=== PATIENT | female | born 1980 | race Caucasian/White ===

== ENCOUNTER 2016-06-09 19:43 | Emergency (ER) | payer SELFPAY ==
[~2016-06-09 19:43] MED LIST: CYCL1TAB29 PO; NAPR500 PO
== END 2016-06-09 20:21 | disposition left against medical advice (07) ==
LOC: PHED 19:43
DX: R21 Rash and other nonspecific skin eruption (principal)
CPT/HCPCS: 99281

== ENCOUNTER 2016-08-16 17:44 | Emergency (ER) | payer SELFPAY ==
[~2016-08-16] VITALS: Ht 160 cm; Wt 70.0 kg
[2016-08-16 17:46] VITALS: BP 117/84; PULSE 75; RESP 14; TEMP 99.1; O2SAT 98
--- NOTE | 2016-08-16 17:57 | PD ---
HPI Chief Complaint: Oral / Dental Pain or Problem Time Seen by Provider: 17:57 Travel History International Travel<30 days: No Contact w/Intl Traveler<30days: No Traveled to known affect area: No History of Present Illness HPI 36-year-old female presents to the emergency department complaint of left upper tooth pain 3 days with onset of facial swelling today. Denies fever, chills, nausea, vomiting. She says her tooth pain has pretty much subsided but is cigar wrapper tender automatic. Her face is tender to touch. Denies difficulty swallowing or throat pain. Says her tooth has a large hole in it. She has tried taking ibuprofen and Tylenol for the pain. No known aggravating factors. Allergies to Depakote, latex, Reglan. History of asthma. No other modifying factors or associated signs and symptoms. PFSH Past Medical History Asthma: Yes (SEASONAL, ALLERGY INDUCED) Bipolar Disorder: Yes Cancer: No Cardiovascular Problems: No Diminished Hearing: No Endocrine: No Gastrointestinal Disorders: Yes (frequent nausea) Genitourinary: No Immune Disorder: No Implanted Vascular Access Dvce: No Musculoskeletal: Yes Neurologic: No Psychiatric: No Reproductive: Yes (ENDOMETRIOSIS) Respiratory: Yes PNEUMOCCOCAL Vaccine (Year): 2010 ?: Not LMP: 08/06/16 : 2 Para: 0 Miscarriage: 2 : 0 Dilation and Curettage (D&C): Yes Past Surgical History Gynecologic Surgery: Yes (LAPOROSCOPY FOR ENDOMETRIOSIS, D&C) Oral Surgery: Yes (TONSILLECTOMY ) Tonsillectomy: Yes Other Surgery: Yes (HAND) Social History Alcohol Use: No Tobacco Use: Yes (1.5 PPD) Substance Use: No Allergies-Medications (Allergen,Severity, Reaction): Coded Allergies: Latex (Verified Allergy, Severe, SOB, Swelling, Rash , 08/16/16) Depakote (Verified Allergy, Intermediate, RASH, 08/16/16) Ritalin (Verified Allergy, Intermediate, RASH, 08/16/16) Reported Meds & Prescriptions Reported Meds & Active Scripts Active Deltasone (Prednisone) 20 Mg Tab 40 Mg PO DAILY 4 Days start 08/17/2016 Peridex Liq (Chlorhexidine Gluconate (Mouth) Liq) 0.12% Soln 15 Ml SWISH-SPIT BID 10 Days Ibuprofen 800 Mg Tab 800 Mg PO Q6HR PRN Clindamycin (Clindamycin HCl) 150 Mg Cap 450 Mg PO Q6H 10 Days Flexeril (Cyclobenzaprine HCl) 10 Mg Tab 10 Mg PO TID PRN Naprosyn (Naproxen) 500 Mg Tab 500 Mg PO BID PRN Review of Systems Except as stated in HPI: all other systems reviewed are Neg Physical Exam Narrative GENERAL: Well-nourished, well-developed female patient, in no acute distress; afebrile, nontoxic-appearing SKIN: Warm and dry. HEAD: Atraumatic. Normocephalic. Left cheek with facial edema; without erythema ; with tenderness on palpation. No lymphadenopathy. EYES: Pupils equal and round. No scleral icterus. No injection or drainage. ENT: Mucosa pink and moist. Airway patent. MOUTH: Mucous membranes moist, no lesions, tongue and gums appear normal. Left upper tooth #14 with large dental cavity and decay; with tenderness on palpation ; surrounding gingiva is without erythema, edema, drainage; no obvious abscess noted. NECK: Trachea midline. No lymphadenopathy. CARDIOVASCULAR: Regular rate. RESPIRATORY: No accessory muscle use. GASTROINTESTINAL: Flat. MUSCULOSKELETAL: No obvious deformities. No clubbing. No cyanosis. No edema. NEUROLOGICAL: Awake and alert. Oriented 3. No obvious cranial nerve deficits. Motor grossly within normal limits. Normal speech. PSYCHIATRIC: Appropriate mood and affect; insight and judgment normal. Data Data Last Documented VS Vital Signs Date Time Temp Pulse Resp B/P Pulse Ox O2 Delivery O2 Flow Rate FiO2 08/16/16 17:46 99.1 75 14 117/84 98 Orders Clindamycin (Cleocin) (08/16/16 18:00) Prednisone (Deltasone) (08/16/16 18:00) Ibuprofen (Motrin) (08/16/16 18:00) [facility] Medical Decision Making Medical Screen Exam Complete: Yes Emergency Medical Condition: Yes Medical Record Reviewed: Yes Differential Diagnosis Dentalgia, infected dental carry, dental abscess Narrative Course 36-year-old female with left upper tooth #14 dentalgia. Patient has left cheek facial edema without erythema. Patient is afebrile and nontoxic-appearing. No obvious abscess noted. Clindamycin, Deltasone, ibuprofen administered in the ER. Emergency dental information sheet provided. Clindamycin, Deltasone, ibuprofen, Peridex mouth rinse prescribed for home. Instructed patient to follow up with dentist. Patient verbalizes understanding and agreement with treatment plan. Patient is medically cleared and stable for discharge. Discussed reasons to return to the emergency department. Instructed patient to follow up with primary care provider. Patient agrees with treatment plan. The patients vital signs are stable and the patient is stable for outpatient follow- up and treatment. Patient discharged home, stable and in no acute distress. Diagnosis Primary Impression: Dentalgia Additional Impression: Facial edema Referrals: Dentist Primary Care Physician Patient Instructions: Dental Abscess (ED), Dental Caries (ED), General Instructions, Toothache (ED) Departure Forms: Tests/Procedures, Work Release Enter return to work date: Aug 17, 2016 Additional Instructions: Complete full course of antibiotics; clindamycin is on the $4 list at [facility] , otherwise try [facility] Ibuprofen or Tylenol as directed and as needed to reduce pain and inflammation Use Peridex as directed for oral hygiene Warm compresses to the affected area Follow-up with dentist Follow-up with primary care provider Return to emergency department immediately with worsening of symptoms Med/Other Pt SpecificInfo: Prescription(s) given Scripts Prednisone (Deltasone)20 Mg Tab40 Mg PO DAILY 4 Days Ref 0 start 08/17/2016 Prov:Annelise Garcia 08/16/16 Chlorhexidine Gluconate (Mouth) Liq (Peridex Liq)0.12% Soln15 Ml SWISH-SPIT BID 10 Days Ref 0 Prov:Annelise Garcia 08/16/16 Ibuprofen 800 Mg [id number] Mg PO Q6HR PRN (PAIN) #30 TAB Ref 0 Prov:Annelise Garcia 08/16/16 Clindamycin 150 Mg [id number] Mg PO Q6H 10 Days Ref 0 Prov:Annelise Garcia 08/16/16 Disposition: 01 DISCHARGE HOME Condition: Stable Annelise Garcia Aug 16, 2016 17:57
[2016-08-16] MEDS ORDERED: IBUPROFEN 800 MG TAB PO ONE (18:00)
[2016-08-16] MEDS ORDERED: PRED-503 PO (18:00)
[2016-08-16] MEDS ORDERED: CLIN1CAP5 PO (18:00)
[2016-08-16] MEDS ORDERED: CLINDAMYCIN 150 MG CAP PO SCH (18:00)
[2016-08-16] MEDS ORDERED: IBUP800T23 PO (18:00)
[2016-08-16] MEDS ORDERED: predniSONE 20 MG TAB PO ONE (18:00)
[2016-08-16] MEDS ORDERED: PERI0.126 SWISH-SPIT (18:00)
== END 2016-08-16 18:10 | disposition home or self-care (01) ==
LOC: NETRI 17:44
DX: K08.89 Other specified disorders of teeth and supporting structures (principal); R22.0 Localized swelling, mass and lump, head; F17.200 Nicotine dependence, unspecified, uncomplicated
CPT/HCPCS: 99283; J7512

== ENCOUNTER 2016-09-18 09:24 | Emergency (ER) | payer SELFPAY ==
[~2016-09-18] VITALS: Ht 160 cm; Wt 68.0 kg
[~2016-09-18 09:24] MED LIST changes: +CLIN1CAP5 PO; +IBUP800T23 PO; +PERI0.126 SWISH-SPIT; +PRED-503 PO
[2016-09-18 09:26] VITALS: BP 127/75; PULSE 88; RESP 20; TEMP 98.5; O2SAT 98
[2016-09-18] MEDS ORDERED: IBUP800T23 PO (09:51)
[2016-09-18] MEDS ORDERED: CLIN1CAP5 PO (09:51)
[2016-09-18] MEDS ORDERED: PERI0.126 SWISH-SPIT (09:51)
--- NOTE | 2016-09-18 09:52 | PD ---
HPI Chief Complaint: Facial Pain or Swelling Time Seen by Provider: 09:51 Travel History International Travel<30 days: No Contact w/Intl Traveler<30days: No Traveled to known affect area: No History of Present Illness HPI 36-year-old female presents to the emergency Department with complaint of left facial swelling that she woke up this morning. Seen her about a month ago with facial swelling to the same side and left upper tooth pain. She denies tooth pain or any other pain at this time. Denies fever, vomiting. She has not followed up with a dentist since her last visit here. She reports her facial swelling and tooth pain went away after taking the antibiotics that she was last prescribed. She didn't finish the steroids that were last prescribed because of change in behavior and feeling "psychotic." She has not taken any medications or tried any treatments to her symptoms. No known relieving or aggravating factors. No other medical complaints. Allergies to Depakote, latex , Ritalin. No other modifying factors or associated signs and symptoms. PFSH Past Medical History Asthma: Yes (SEASONAL, ALLERGY INDUCED) Bipolar Disorder: Yes Cancer: No Cardiovascular Problems: No Diminished Hearing: No Endocrine: No Gastrointestinal Disorders: Yes (frequent nausea) Genitourinary: No Immune Disorder: No Implanted Vascular Access Dvce: No Musculoskeletal: Yes Neurologic: No Psychiatric: No Reproductive: Yes (ENDOMETRIOSIS) Respiratory: Yes Tetanus Vaccination: < 5 Years Influenza Vaccination: No PNEUMOCCOCAL Vaccine (Year): 2010 ?: Not LMP: 08/20/16 : 2 Para: 0 Miscarriage: 2 : 0 Dilation and Curettage (D&C): Yes Past Surgical History Gynecologic Surgery: Yes (LAPOROSCOPY FOR ENDOMETRIOSIS, D&C) Oral Surgery: Yes (TONSILLECTOMY ) Tonsillectomy: Yes Other Surgery: Yes (HAND) Social History Alcohol Use: No Tobacco Use: Yes (1.5 PPD) Substance Use: No Allergies-Medications (Allergen,Severity, Reaction): Coded Allergies: Latex (Verified Allergy, Severe, SOB, Swelling, Rash , 09/18/16) Depakote (Verified Allergy, Intermediate, RASH, 09/18/16) Ritalin (Verified Allergy, Intermediate, RASH, 09/18/16) Reported Meds & Prescriptions Reported Meds & Active Scripts Active Zofran Odt (Ondansetron Odt) 4 Mg Tab 4 Mg SL Q8HR PRN Clindamycin (Clindamycin HCl) 150 Mg Cap 450 Mg PO Q6H 10 Days Ibuprofen 800 Mg Tab 800 Mg PO Q6HR PRN Peridex Liq (Chlorhexidine Gluconate (Mouth) Liq) 0.12% Soln 15 Ml SWISH-SPIT BID 10 Days Review of Systems Except as stated in HPI: all other systems reviewed are Neg Physical Exam Narrative GENERAL: Well-nourished, well-developed female patient, in no acute distress; afebrile, nontoxic-appearing SKIN: Warm and dry. HEAD: Atraumatic. Normocephalic. Left cheek with facial edema; without erythema ; without tenderness on palpation. No lymphadenopathy. EYES: Pupils equal and round. No scleral icterus. No injection or drainage. ENT: Mucosa pink and moist. Airway patent. MOUTH: Mucous membranes moist, no lesions, tongue and gums appear normal. Left upper tooth #14 with large dental cavity and decay; without tenderness on palpation; surrounding gingiva is without erythema, edema, drainage; no obvious abscess noted. NECK: Trachea midline. No lymphadenopathy. CARDIOVASCULAR: Regular rate. RESPIRATORY: No accessory muscle use. GASTROINTESTINAL: Flat. MUSCULOSKELETAL: No obvious deformities. No clubbing. No cyanosis. No edema. NEUROLOGICAL: Awake and alert. Oriented 3. No obvious cranial nerve deficits. Motor grossly within normal limits. Normal speech. PSYCHIATRIC: Appropriate mood and affect; insight and judgment normal. Data Data Last Documented VS Vital Signs Date Time Temp Pulse Resp B/P Pulse Ox O2 Delivery O2 Flow Rate FiO2 09/18/16 09:26 98.5 88 20 127/75 98 Room Air Orders Clindamycin (Cleocin) (09/18/16 10:00) Ibuprofen (Motrin) (09/18/16 10:00) Ondansetron Odt (Zofran Odt) (09/18/16 10:15) [facility] Medical Decision Making Medical Screen Exam Complete: Yes Emergency Medical Condition: Yes Medical Record Reviewed: Yes Differential Diagnosis Dentalgia, dental abscess, facial edema Narrative Course 36-year-old female with left-sided facial edema. I saw this patient on August 16 with similar symptoms at that time she had tooth pain. She denies tooth pain at this time. She has not followed up with a dentist since her last visit. Facial edema is without erythema or tenderness on palpation. I will treat the patient for suspected dental abscess. Patient reports feeling nauseated while taking clindamycin last month. I will prescribe Zofran as needed for nausea. Clindamycin, Zofran, and ibuprofen administered in the ER. Clindamycin, Zofran , Peridex mouth rinse, ibuprofen prescribed for home. Provided patient with emergency dental gemmation sheet. Instructed to follow-up with dentist. Patient verbalizes understanding and agreement with treatment plan. Patient is medically cleared and stable for discharge. Discussed reasons to return to the emergency department. Instructed patient to follow up with primary care provider. Patient agrees with treatment plan. The patients vital signs are stable and the patient is stable for outpatient follow-up and treatment. Patient discharged home, stable and in no acute distress. Diagnosis Primary Impression: Facial edema Referrals: Dentist Primary Care Physician Patient Instructions: Dental Abscess (ED), Dental Caries (ED), General Instructions, Toothache (ED) Departure Forms: Tests/Procedures, Work Release Enter return to work date: September 19, 2016 Additional Instructions: Complete full course of antibiotics Ibuprofen as directed and as needed to reduce pain and inflammation Use Peridex as directed for oral hygiene Warm compresses to the affected area Follow-up with dentist Follow-up with primary care provider Return to emergency department immediately with worsening of symptoms Med/Other Pt SpecificInfo: Prescription(s) given Scripts Ondansetron Odt (Zofran Odt)4 Mg Tab4 Mg SL Q8HR PRN (Nausea/Vomiting) #20 TAB Ref 0 Prov:Annelise Garcia 09/18/16 Clindamycin 150 Mg [id number] Mg PO Q6H 10 Days Ref 0 Prov:Annelise Garcia 09/18/16 Ibuprofen 800 Mg [id number] Mg PO Q6HR PRN (PAIN) #30 TAB Ref 0 Prov:Annelise Garcia 09/18/16 Chlorhexidine Gluconate (Mouth) Liq (Peridex Liq)0.12% Soln15 Ml SWISH-SPIT BID 10 Days Ref 0 Prov:Annelise Garcia 09/18/16 Disposition: 01 DISCHARGE HOME Condition: Stable Annelise Garcia September 18, 2016 09:52
[2016-09-18] MEDS ORDERED: IBUPROFEN 800 MG TAB PO ONE (10:00)
[2016-09-18] MEDS ORDERED: CLINDAMYCIN 150 MG CAP PO ONE (10:00)
[2016-09-18] MEDS ORDERED: ZOFR4TAB3 SL (10:02)
[2016-09-18] MEDS ORDERED: ONDANSETRON ODT 4 MG TAB PO ONE (10:15)
[2016-09-18 11:11] VITALS: RESP 16
== END 2016-09-18 10:19 | disposition home or self-care (01) ==
LOC: NEPK 09:24
DX: R60.0 Localized edema (principal)
CPT/HCPCS: 99283

== ENCOUNTER 2016-12-29 12:15 | Emergency (ER) | payer SELFPAY ==
[~2016-12-29] VITALS: Ht 157.5 cm; Wt 65.9 kg
[~2016-12-29 12:15] MED LIST changes: -CYCL1TAB29 PO; -NAPR500 PO; -PRED-503 PO; +ZOFR4TAB3 SL
[2016-12-29 12:20] VITALS: BP 143/90; PULSE 86; RESP 16; TEMP 98.3; O2SAT 100
[2016-12-29] MEDS ORDERED: HYDR-3533 PO (12:53)
[2016-12-29] MEDS ORDERED: PRED20 PO (12:53)
--- NOTE | 2016-12-29 13:00 | PD ---
HPI Chief Complaint: Injury Time Seen by Provider: 12:53 Travel History International Travel<30 days: No Contact w/Intl Traveler<30days: No Traveled to known affect area: No History of Present Illness HPI 36-year-old female presents to the emergency room for evaluation of right shoulder pain for the past 2 weeks. Patient states she injured trying to catch her 160 pounds was in front of her and fell backwards. She put her arms under her daughter's arm pits and gently lowered her to the ground. Since then she has had severe pain in the right shoulder. Pain is worsened with any range of motion especially overhead. Taking Aleve and Advil more than prescribed without any relief in symptoms. She has also been applying heat, ice, and topical pain medications. Patient states pain is severe, constant, and worse with certain range of motion. Reports intermittent paresthesias and weakness in the right upper extremity. She does not have a primary care physician. Patient states she has been doing her best to maintain range of motion of the right shoulder. PFSH Past Medical History Asthma: Yes (SEASONAL, ALLERGY INDUCED) Bipolar Disorder: Yes Cancer: No Cardiovascular Problems: No Diminished Hearing: No Endocrine: No Gastrointestinal Disorders: Yes Genitourinary: No Immune Disorder: No Implanted Vascular Access Dvce: No Musculoskeletal: Yes Neurologic: No Psychiatric: No Reproductive: Yes (ENDOMETRIOSIS) Respiratory: Yes Tetanus Vaccination: < 5 Years Influenza Vaccination: No PNEUMOCCOCAL Vaccine (Year): 2010 ?: Not LMP: 12/17/16 : 2 Para: 0 Miscarriage: 2 : 0 Dilation and Curettage (D&C): Yes Past Surgical History Gynecologic Surgery: Yes (LAPOROSCOPY FOR ENDOMETRIOSIS, D&C) Oral Surgery: Yes (TONSILLECTOMY ) Tonsillectomy: Yes Other Surgery: Yes Social History Alcohol Use: No Tobacco Use: Yes (1.5 PPD) Substance Use: No Allergies-Medications (Allergen,Severity, Reaction): Coded Allergies: latex (Unverified Allergy, Severe, SOB, Swelling, Rash , 12/29/16) divalproex sodium (Unverified Allergy, Intermediate, RASH, 12/29/16) methylphenidate (Unverified Allergy, Intermediate, RASH, 12/29/16) Reported Meds & Prescriptions Reported Meds & Active Scripts Active Lortab (Hydrocodone-Acetaminophen) 5-325 Mg Tab 1 Tab PO Q6H PRN Prednisone 20 Mg Tab 20 Mg PO DAILY Review of Systems Except as stated in HPI: all other systems reviewed are Neg Physical Exam Narrative GENERAL: Well-nourished, well-developed female in no acute distress. Afebrile. Ambulatory. SKIN: Focused skin assessment warm/dry. No erythema or ecchymosis. No increased warmth. HEAD: Normocephalic. EYES: No scleral icterus. No injection or drainage. NECK: Supple, trachea midline. No JVD or lymphadenopathy. CARDIOVASCULAR: Regular rate and rhythm without murmurs, gallops, or rubs. RESPIRATORY: Breath sounds equal bilaterally. No accessory muscle use. MUSCULOSKELETAL: No cyanosis. No edema noted. 2+ radial pulse. Radial, ulnar , and median nerves intact. Full range of motion of the right upper extremity; severe pain with overhead reaching. No bony tenderness to palpation. Data Data Last Documented VS Vital Signs Date Time Temp Pulse Resp B/P Pulse Ox O2 Delivery O2 Flow Rate FiO2 12/29/16 12:20 98.3 86 16 143/90 100 MDM Medical Decision Making Medical Screen Exam Complete: Yes Emergency Medical Condition: Yes Medical Record Reviewed: Yes Differential Diagnosis Glenohumeral joint dysfunction, frozen shoulder, impingement syndrome Narrative Course 36-year-old female presents to the emergency room for evaluation of severe right shoulder pain for the past 2 weeks that has been getting progressively worse. Pain started after she caught her 160 pound daughter but there is no blunt trauma or fall to the shoulder. She is crying in pain. Patient reports associated paresthesias and weakness. There is no objective decreased sensation or weakness on exam. 2+ radial pulse. Radial, ulnar, and median nerves intact. No significant edema. No erythema or ecchymosis. Full range of motion of the right upper extremity but with pain during overhead shoulder range of motion. No bony tenderness to palpation. No indication for x-ray imaging at this time. No concern for septic arthritis or extrinsic etiology of pain. This is likely glenohumeral pathology. Patient was discharged with prescriptions for prednisone and Lortab and told to follow-up with her primary care physician for outpatient MRI. She was told to return for worsening symptoms. She understands and agrees to plan. Diagnosis Primary Impression: Shoulder pain, acute Qualified Code: M25.511 - Acute pain of right shoulder Referrals: Primary Care Physician Patient Instructions: General Instructions, Shoulder Sprain (ED) Additional Instructions: Rest and drink plenty of fluids. Take prednisone on a full stomach as directed until gone. Do not take this medication with Aleve, aspirin, or Advil. Take Lortab as directed, as needed for pain. Apply ice to the affected area for 20 minutes at a time, as needed for pain and swelling. Follow-up with a primary care physician for outpatient MRI. Return to the emergency room for worsening symptoms. Med/Other Pt SpecificInfo: Prescription(s) given Scripts Hydrocodone-Acetaminophen (Lortab)5-325 Mg Tab1 Tab PO Q6H PRN (PAIN) #12 TAB Ref 0 Prov:Mak Sawyer MD 12/29/16 Prednisone 20 Mg Tab20 Mg PO DAILY #5 TAB Ref 0 Prov:Mak Sawyer MD 12/29/16 Disposition: 01 DISCHARGE HOME Condition: Stable Yvette Betts Dec 29, 2016 13:00
== END 2016-12-29 13:08 | disposition home or self-care (01) ==
LOC: PHEFT 12:15
DX: M25.511 Pain in right shoulder (principal); F17.200 Nicotine dependence, unspecified, uncomplicated
CPT/HCPCS: 99284